=== PATIENT | female | born 1975 | race American Indian/Alaskan Native ===

== ENCOUNTER 2017-01-02 15:45 | Emergency (ER) | payer MEDICAID ==
[~2017-01-02] VITALS: Ht 165.1 cm; Wt 91.0 kg
[2017-01-02] MEDS ORDERED: LIDOCAINE 1%, 20ML ONE (16:38)
[2017-01-02 18:00] VITALS: BP 143/71
== END 2017-01-02 18:02 | disposition home or self-care (01) ==
LOC: ED 17:56
DX: S00.83XA Contusion of other part of head, initial encounter (principal); S20.211A Contusion of right front wall of thorax, initial encounter; J45.909 Unspecified asthma, uncomplicated; F11.10 Opioid abuse, uncomplicated; F15.10 Other stimulant abuse, uncomplicated; F12.10 Cannabis abuse, uncomplicated; F29 Unspecified psychosis not due to a substance or known physiological condition; W22.8XXA Striking against or struck by other objects, initial encounter; Y93.89 Activity, other specified; Y92.89 Other specified places as the place of occurrence of the external cause; Y99.8 Other external cause status

== ENCOUNTER 2017-02-09 21:47 | Emergency (ER) | payer MEDICAID ==
[~2017-02-09] VITALS: Ht 167.6 cm; Wt 87.1 kg
[2017-02-09 21:49] VITALS: BP 133/75
[2017-02-09] MEDS ORDERED: PROPARACAINE OPHTH 0.5%, 15ML ONE (22:56)
[2017-02-09] MEDS ORDERED: FLUORESCEIN OPHTHALMIC 1 MG STRIP ONE (22:56)
[2017-02-09] MEDS ORDERED: PROPARACAINE OPHTH 0.5%, 15ML EACHEYE ONE (23:00)
[2017-02-09] MEDS ORDERED: FLUORESCEIN OPHTHALMIC 1 MG STRIP EACHEYE ONE (23:00)
== END 2017-02-10 00:21 | disposition home or self-care (01) ==
LOC: ED 23:59
DX: S00.12XA Contusion of left eyelid and periocular area, initial encounter (principal); S00.11XA Contusion of right eyelid and periocular area, initial encounter; J45.909 Unspecified asthma, uncomplicated; Z90.49 Acquired absence of other specified parts of digestive tract; Y04.0XXA Assault by unarmed brawl or fight, initial encounter; Y93.89 Activity, other specified; Y92.89 Other specified places as the place of occurrence of the external cause; Y99.8 Other external cause status
CPT/HCPCS: 36415; 70450; 70486; 72125; 80307

== ENCOUNTER 2017-03-20 22:57 | Emergency (ER) | payer MEDICAID ==
[~2017-03-20] VITALS: Ht 167.6 cm; Wt 81.3 kg
[2017-03-20] MEDS ORDERED: OXYcodone/APAP 5/325MG TABLET PO ONE (23:30)
[2017-03-20] MEDS ORDERED: OXYcodone/APAP 5/325MG TABLET ONE (23:36)
[2017-03-21] MEDS ORDERED: BACITRACIN ZINC OINT 500U/GM, 0.9 GM ONE ×2 (01:08→01:17)
[2017-03-21 01:32] VITALS: BP 156/94
== END 2017-03-21 01:34 | disposition home or self-care (01) ==
LOC: ED 03-21 01:27
DX: S61.220A Laceration with foreign body of right index finger without damage to nail, initial encounter (principal); J45.909 Unspecified asthma, uncomplicated; W45.8XXA Other foreign body or object entering through skin, initial encounter; Y93.89 Activity, other specified; Y92.9 Unspecified place or not applicable; Y99.9 Unspecified external cause status

== ENCOUNTER 2017-03-30 22:47 | Emergency (ER) | payer MEDICAID ==
[~2017-03-30] VITALS: Ht 167.6 cm; Wt 83.1 kg
[2017-03-30 22:49] VITALS: BP 138/90
== END 2017-03-31 00:04 | disposition left against medical advice (07) ==
LOC: ED 23:50
DX: Z53.21 Procedure and treatment not carried out due to patient leaving prior to being seen by health care provider (principal)

== ENCOUNTER 2017-05-05 22:00 | Emergency (ER) | payer MEDICAID ==
[~2017-05-05] VITALS: Ht 165.1 cm; Wt 80.3 kg
[2017-05-05 22:02] VITALS: BP 147/106
[2017-05-05] MEDS ORDERED: FAMOTIDINE 20 MG TABLET PO ONE (23:00)
[2017-05-05] MEDS ORDERED: FAMOTIDINE 20 MG TABLET ONE (23:23)
[2017-05-05] MEDS ORDERED: LORazepam 1MG TABLET ONE (23:23)
[2017-05-05] MEDS ORDERED: LORazepam 1MG TABLET PO ONE (23:30)
[2017-05-05 23:41] LABS: BLOOD UREA NITROGEN 14 mg/dL (7-18)
== END 2017-05-06 01:27 | disposition left against medical advice (07) ==
LOC: ED 05-06 01:04
DX: R10.13 Epigastric pain (principal); F41.9 Anxiety disorder, unspecified; F15.10 Other stimulant abuse, uncomplicated; I10 Essential (primary) hypertension
CPT/HCPCS: 36415; 80048; 81001; 82040; 83690; 84703; 85025; 99284

== ENCOUNTER 2017-06-19 03:08 | Emergency (ER) | payer MEDICAID ==
[~2017-06-19] VITALS: Ht 167.6 cm; Wt 83.9 kg
[2017-06-19 03:09] VITALS: BP 164/117
== END 2017-06-19 04:07 | disposition left against medical advice (07) ==
LOC: ED 04:01
DX: Z53.21 Procedure and treatment not carried out due to patient leaving prior to being seen by health care provider (principal)

== ENCOUNTER 2020-11-02 23:23 | Emergency (ER) | payer MEDICAID ==
[~2020-11-02] VITALS: Ht 170.2 cm; Wt 95.4 kg
[2020-11-03 00:20] VITALS: BP 139/84
--- NOTE | 2020-11-03 00:23 | NUR ---
PT RESTING IN [facility], CXR TAKEN, VSS, N O OTHER NEEDS AT THIS TIME
== END 2020-11-03 01:40 ==
LOC: ED 11-03 01:05
DX: J06.9 Acute upper respiratory infection, unspecified (principal); Z20.822 Contact with and (suspected) exposure to COVID-19; F15.959 Other stimulant use, unspecified with stimulant-induced psychotic disorder, unspecified; F10.10 Alcohol abuse, uncomplicated; F17.210 Nicotine dependence, cigarettes, uncomplicated; I10 Essential (primary) hypertension; J45.909 Unspecified asthma, uncomplicated; Z90.49 Acquired absence of other specified parts of digestive tract; Z72.9 Problem related to lifestyle, unspecified; Y90.9 Presence of alcohol in blood, level not specified
CPT/HCPCS: 71045; 87635; 99284; 99406

== ENCOUNTER 2021-01-06 03:07 | Emergency (ER) | payer MEDICAID ==
--- NOTE | 2021-01-06 03:15 | NUR ---
PT IN BATHROOM WHEN CALLED FOR TRIAGE.
--- NOTE | 2021-01-06 03:30 | NUR ---
PT STILL IN BATHROOM WHEN CALLED FOR TRIAGE.
== END 2021-01-06 03:45 | disposition left against medical advice (07) ==
LOC: ED 03:17
DX: R52 Pain, unspecified (principal); Z53.21 Procedure and treatment not carried out due to patient leaving prior to being seen by health care provider

== ENCOUNTER 2021-01-16 05:36 | Emergency (ER) | payer MEDICAID ==
[~2021-01-16] VITALS: Ht 165.1 cm; Wt 75.0 kg
[2021-01-16 05:39] VITALS: BP 149/87
--- NOTE | 2021-01-16 05:58 | NUR ---
PT. TO ED WITH C/O "I HAVE BAD ALLERGIES ALL MY LIFE." "MY RIGHT LEG HAS BEEN SEIZING UP ALL MY LIFE". "I HAVE BEEN SOB MY WHOLE LIFE WELL." ALSO C/O "SOMETHING CRAWLING OUT OF MY RIGHT THUMB". PT. ADMITS TO METH USE DAILY. DORA MALDONADO HAS BEEN IN TO EVAL PT. AND PT. TO BE D/C.
--- NOTE | 2021-01-16 06:06 | NUR ---
D/C INSTRUCTIONS PROVIDED TO PT. PT. VERBALIZED UNDERSTANDING. REQUESTED PT. TO GET DRESSED FOR D/C.
== END 2021-01-16 06:23 | disposition home or self-care (01) ==
LOC: ED 06:18
DX: J30.2 Other seasonal allergic rhinitis (principal); F15.10 Other stimulant abuse, uncomplicated; R06.02 Shortness of breath; R06.00 Dyspnea, unspecified; Z88.8 Allergy status to other drugs, medicaments and biological substances; Z90.49 Acquired absence of other specified parts of digestive tract
CPT/HCPCS: 99282

== ENCOUNTER 2021-02-05 23:37 | Emergency (ER) | payer MEDICAID ==
[~2021-02-05] VITALS: Ht 167.6 cm; Wt 91.2 kg
[2021-02-05 23:39] VITALS: BP 155/87
[2021-02-06] MEDS ORDERED: ACETAMINOPHEN 500 MG TABLET PO ONE
[2021-02-06] MEDS ORDERED: ACETAMINOPHEN 500 MG TABLET ONE (00:16)
== END 2021-02-06 01:41 | disposition home or self-care (01) ==
LOC: ED 02-06 00:01
DX: G44.219 Episodic tension-type headache, not intractable (principal); M54.2 Cervicalgia; I10 Essential (primary) hypertension; J45.909 Unspecified asthma, uncomplicated
CPT/HCPCS: 99282

== ENCOUNTER 2021-06-25 00:11 | Emergency (ER) | payer MEDICAID ==
[~2021-06-25] VITALS: Ht 160 cm; Wt 1.3 kg
[2021-06-25] MEDS ORDERED: OLANZAPINE ODT 10MG PO ONE (00:30)
[2021-06-25 00:53] LABS: BASOPHILS % (AUTO) 1 % (0-1); EOSINOPHILS % (AUTO) 2 % (1-7); LYMPHOCYTES % (AUTO) 30 % (22-44); MEAN CORPUSCULAR HEMOGLOBIN 30.1 pg (27.0-34.8); MEAN CORPUSCULAR HGB CONC 33.6 g/dL (32.4-35.8); MEAN PLATELET VOLUME 7.9 fL (7.4-10.4); MONOCYTES % (AUTO) 8 % (2-9); NEUTROPHILS % (AUTO) 59 % (42-75); PLATELET COUNT 298 x10^3/uL (130-400); RED BLOOD COUNT 4.73 x10^6/uL (3.82-5.3); RED CELL DISTRIBUTION WIDTH 14.9 % (9.6-15.2)
[2021-06-25 00:54] LABS: ALBUMIN 3.4 g/dL (3.4-5.0); ANION GAP 7 mmol/L (5-15); CALCIUM 7.8 mg/dL (8.5-10.1); CHLORIDE 109 mmol/L (98-107); SALICYLATE LEVEL < 1.7 mg/dL (2.8-20.0)
[2021-06-25 00:59] LABS: ALANINE AMINOTRANSFERASE 52 U/L (12-78); ALKALINE PHOSPHATASE 120 U/L (45-117); BILIRUBIN,TOTAL 0.3 mg/dL (0.2-1.0); CREATININE 1.09 mg/dL (0.55-1.02); TOTAL PROTEIN 7.3 g/dL (6.4-8.2)
--- NOTE | 2021-06-25 01:06 | NUR ---
REPORT GIVEN TO KIARA BLUM.
--- NOTE | 2021-06-25 01:07 | NUR ---
report from lydia blood
[2021-06-25] MEDS ORDERED: OLANZAPINE 5 MG TABLET ONE (01:18)
[2021-06-25] MEDS ORDERED: POTASSIUM CHLORIDE 20 MEQ TAB.ER.PRT PO ONE (02:00)
[2021-06-25] MEDS ORDERED: POTASSIUM CHLORIDE 20 MEQ TAB.ER.PRT ONE (02:02)
--- NOTE | 2021-06-25 02:04 | NUR ---
ERP at bedside to discuss POC
--- NOTE | 2021-06-25 02:46 | NUR ---
PT resting in bed, given water per request, WCTM
--- NOTE | 2021-06-25 03:46 | NUR ---
Pt continues to rest in bed, NADN, WCTM
--- NOTE | 2021-06-25 04:58 | NUR ---
Pt rambling while sitting in bed, sitter in view of pt, NADN, WCTM
--- NOTE | 2021-06-25 06:09 | NUR ---
pt resting in bed with eyes closed, even and symmetrical chest rise, WCTM
--- NOTE | 2021-06-25 06:10 | NUR ---
sitter in view of pt
--- NOTE | 2021-06-25 07:04 | NUR ---
Report to Umm CRAIG
--- NOTE | 2021-06-25 07:39 | NUR ---
ASSUMING CARE AFTER BEDSIDE REPORT. VSS. LAINEZ.
--- NOTE | 2021-06-25 09:12 | NUR ---
report to elier blood.
--- NOTE | 2021-06-25 09:20 | NUR ---
PT ASLEEP WITH EVEN AND UNLABORED RESPIRATIONS. VSS. NADN. SAFETY PRECAUTIONS IN PLACE. SITTER AT BEDSIDE.
--- NOTE | 2021-06-25 09:27 | NUR ---
PT PROVIDED WITH BREAKFAST TRAY AND WATER. NADN. SAFETY PRECAUTIONS IN PLACE. NADN.
[2021-06-25 11:56] VITALS: BP 150/91
--- NOTE | 2021-06-25 12:46 | NUR ---
Patient/Caregiver given discharge instructions and they have confirmed that they understand the instructions. Patient ambulatory with steady gait.
== END 2021-06-25 12:47 | disposition home or self-care (01) ==
LOC: ED 01:49
DX: F15.151 Other stimulant abuse with stimulant-induced psychotic disorder with hallucinations (principal); F23 Brief psychotic disorder; F10.220 Alcohol dependence with intoxication, uncomplicated; F17.210 Nicotine dependence, cigarettes, uncomplicated; I10 Essential (primary) hypertension; J45.909 Unspecified asthma, uncomplicated; Z90.49 Acquired absence of other specified parts of digestive tract; Y90.0 Blood alcohol level of less than 20 mg/100 ml
CPT/HCPCS: 36415; 80053; 80299; 80320; 80329; 84703; 85025; 99406; G0480